=== PATIENT | female | born 1945 | race Caucasian/White ===

== ENCOUNTER 2019-01-19 08:45 | Day surgery (SDC) | payer OTHER, BC | END 2019-01-19 11:15 | disposition home or self-care (01) | LOC: FASU-ENDO 08:45 ==

== ENCOUNTER 2020-10-24 10:13 | Day surgery (SDC) | payer OTHER, BC ==
[2020-10-22 14:48] VITALS: BMI 26.2
[2020-10-24 12:26] VITALS: BP 124/69; PULSE 60; TEMP 97.7
== END 2020-10-24 12:26 | disposition home or self-care (01) ==
LOC: FASU-ENDO 10:13
PROVIDERS: ATTEND Internal Medicine Gastroenterology
PROC: 0DB78ZX Excision of Stomach, Pylorus, Via Natural or Artificial Opening Endoscopic, Diagnostic (ICD-10-PCS; 2020-10-24)
PROC: 0DB48ZX Excision of Esophagogastric Junction, Via Natural or Artificial Opening Endoscopic, Diagnostic (ICD-10-PCS; principal; 2020-10-24 11:22)
DX: K29.50 Unspecified chronic gastritis without bleeding (principal); K21.9 Gastro-esophageal reflux disease without esophagitis; K22.8 Other specified diseases of esophagus; K31.89 Other diseases of stomach and duodenum; Z87.11 Personal history of peptic ulcer disease
CPT/HCPCS: 82962; 88305-TC; 88342-TC

== ENCOUNTER 2022-01-15 15:03 | Emergency (ER) | payer OTHER, BC ==
[2022-01-15 15:35] VITALS: BP 124/67; PULSE 72; TEMP 99; BMI 25.7
== END 2022-01-15 16:28 | disposition home or self-care (01) ==
LOC: FER 15:03
DX: S09.90XA Unspecified injury of head, initial encounter (principal); S40.012A Contusion of left shoulder, initial encounter; W01.0XXA Fall on same level from slipping, tripping and stumbling without subsequent striking against object, initial encounter
CPT/HCPCS: 70450-TC; 99284-25

== ENCOUNTER 2023-05-27 11:02 | Day surgery (SDC) | payer OTHER, BC ==
[2023-05-25 14:13] VITALS: BMI 25.7
[2023-05-27 14:02] VITALS: TEMP 97
[2023-05-27 14:03] VITALS: RESP 16
[2023-05-27 14:05] VITALS: BP 129/71; PULSE 66
== END 2023-05-27 14:20 | disposition home or self-care (01) ==
LOC: FASU-ENDO 11:02
PROVIDERS: ATTEND Internal Medicine Gastroenterology
PROC: 0DB68ZX Excision of Stomach, Via Natural or Artificial Opening Endoscopic, Diagnostic (ICD-10-PCS; 2023-05-27)
PROC: 0DB48ZX Excision of Esophagogastric Junction, Via Natural or Artificial Opening Endoscopic, Diagnostic (ICD-10-PCS; 2023-05-27)
PROC: 0DB98ZX Excision of Duodenum, Via Natural or Artificial Opening Endoscopic, Diagnostic (ICD-10-PCS; principal; 2023-05-27 13:33)
DX: R10.13 Epigastric pain (principal); K31.7 Polyp of stomach and duodenum
CPT/HCPCS: 82962; 88305-TC; 88342-TC

== ENCOUNTER 2024-03-02 09:32 | Day surgery (SDC) | payer OTHER, BC ==
[2024-02-24 13:30] VITALS: BMI 25.7
[2024-03-02 12:23] VITALS: RESP 19; TEMP 97.1
[2024-03-02 12:26] VITALS: BP 124/62; PULSE 62
== END 2024-03-02 12:20 | disposition home or self-care (01) ==
LOC: FASU-ENDO 09:32
PROVIDERS: ATTEND Internal Medicine Gastroenterology
PROC: 0DBP8ZX Excision of Rectum, Via Natural or Artificial Opening Endoscopic, Diagnostic (ICD-10-PCS; principal; 2024-03-02 11:23)
DX: Z12.11 Encounter for screening for malignant neoplasm of colon (principal); D12.8 Benign neoplasm of rectum; K64.1 Second degree hemorrhoids; K57.30 Diverticulosis of large intestine without perforation or abscess without bleeding
CPT/HCPCS: 82962; 88305-TC